=== PATIENT | female | born 1950 | race Hispanic/Latino ===

== ENCOUNTER → 2023-12-18 | Outpatient (CLI) | payer MEDICARE, MEDICAID ==
[~2023-12-18] MED LIST: IOHEXOL-350 50ML VIAL IV ONE
--- NOTE | 2023-12-18 10:47 | HMCIMG ---
FISTULA GRAM REASON: Unspecified open wound of abdominal wall, unspecified quadrant without pen. COMPARISON: None TECHNIQUE: Fistulogram was performed from the opening of the left lower abdomen and also from the opening of the inferior aspect of the periumbilical region. Fistulogram from the opening cannot be performed due to failure to cannulate. FINDINGS: There is opacification of small portion of the small bowel loops noted from the opening of the left lower abdomen suggestive of enterocutaneous fistula. There appears to be opacification of colon from the second injection from the opening of the inferior aspect of the periumbilical region also consistent with enterocutaneous fistula. 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
== END | disposition home or self-care (01) ==
LOC: RAH 09:15
PROVIDERS: ATTEND Family Medicine
DX: S31.105D Unspecified open wound of abdominal wall, periumbilic region without penetration into peritoneal cavity, subsequent encounter (principal); K63.2 Fistula of intestine; I10 Essential (primary) hypertension; E11.628 Type 2 diabetes mellitus with other skin complications; E66.9 Obesity, unspecified; X58.XXXD Exposure to other specified factors, subsequent encounter
CPT/HCPCS: 76080; Q9967